=== PATIENT | male | born 1990 | race Caucasian/White ===

== ENCOUNTER 2017-12-16 02:02 | Emergency (ER) | payer OTHER ==
[~2017-12-16] VITALS: Ht 180.3 cm; Wt 71.9 kg
[2017-12-16 06:37] VITALS: BP 121/60
== END 2017-12-16 06:44 | disposition home or self-care (01) ==
LOC: EME 02:02
DX: T40.1X1A Poisoning by heroin, accidental (unintentional), initial encounter (principal); S00.83XA Contusion of other part of head, initial encounter; M25.571 Pain in right ankle and joints of right foot; V48.0XXA Car driver injured in noncollision transport accident in nontraffic accident, initial encounter; F17.200 Nicotine dependence, unspecified, uncomplicated
CPT/HCPCS: 70450; 72125; 73610; 99281; 99284

== ENCOUNTER 2018-03-09 13:05 | Inpatient (IN) | payer OTHER ==
[~2018-03-09] VITALS: Ht 180.3 cm; Wt 74.0 kg
[2018-03-09 13:17] LABS: BASOPHIL (%) 0.3 % (0-1); EOSINOPHIL (%) 0.6 % (0-5); EOSINOPHIL COUNT 0.1 K/uL (0-0.3); HEMATOCRIT 39.7 % (38.0-50.0); HEMOGLOBIN 13.8 G/DL (12.5-16.6); IMMATURE GRANULOCYTE (%) 0.3 % (0.0-0.7); LYMPHOCYTE (%) 12.4 % (15-42); LYMPHOCYTE COUNT 1.3 K/uL (1.0-2.8); MCH 31.8 PG (29.0-34.0); MCHC 34.8 G/DL (30.0-36.0); MCV 91.5 FL (86-99); MONOCYTE (%) 7.1 % (3-12); MONOCYTE COUNT 0.8 K/uL (0-0.8); NEUTROPHIL (%) 79.3 % (45-76); NEUTROPHIL COUNT 8.6 K/uL (1.8-6.4); PLATELET COUNT 166 K/uL (156-360); RBC DIS.WIDTH-CV 12.3 % (11.8-14.6); RBC DIS.WIDTH-SD 41.5 % (39-53); RED BLOOD COUNT 4.34 M/uL (4.00-5.50); WHITE BLOOD COUNT 10.8 K/uL (4.1-10.2)
[2018-03-09 13:26] LABS: AMYLASE 57 IU/L (1-118); CHLORIDE 100 mEq/L (99-109); SODIUM 139 mEq/L (136-147)
[2018-03-09 13:28] LABS: GLUCOSE 120 mg/dL (70-99)
[2018-03-09 13:31] LABS: SERUM ETHYL ALCOHOL < 10 mg/dL
[2018-03-09 13:32] LABS: CREATININE 0.9 mg/dL (0.6-1.3); GFR ESTIMATE (CALCULATED) > 59 mL/min/ (58.99-99999)
[2018-03-09 13:33] LABS: UREA NITROGEN (BUN) 11 mg/dL (9-23)
[2018-03-09 13:35] LABS: LIPASE 9 U/L (1.0-51.0)
[2018-03-09] MEDS ORDERED: NEURONTIN800 MG PO (16:17)
[2018-03-09] MEDS ORDERED: DESYREL100 MG PO (16:22)
[2018-03-09] MEDS ORDERED: FLEXERIL10 MG PO (16:22)
[2018-03-09] MEDS ORDERED: METHADONE10 MG PO (16:23)
[2018-03-09] MEDS ORDERED: ADVIL,NUPRIN,M200 MG PO (16:23)
[2018-03-09 21:38] VITALS: BP 149/86
[2018-03-09 21:45] VITALS: BP 149/86
[2018-03-09 23:00] VITALS: BP 154/69
[2018-03-09 23:35] LABS: APPEARANCE CLEAR ((CLEAR)); BILIRUBIN NEGATIVE; BLOOD NEGATIVE; COLOR YELLOW ((YELLOW)); GLUCOSE (STRIP) NEGATIVE; KETONES 5; LEUKOCYTES NEGATIVE; NITRITE NEGATIVE; PROTEIN (STRIP) NEGATIVE; SPECIFIC GRAVITY 1.017 (1.000-1.030); UCUL ADDED? NO; UROBILINOGEN 0.2 MG/DL (0.2-1.0)
[2018-03-09 23:57] LABS: COCAINE NEGATIVE (150 ng/mL); PHENCYCLIDINE NEGATIVE (25 ng/mL); THC CANNABINOIDS PRESUMPTIVE POSITIVE (50 ng/mL)
[2018-03-09 23:58] LABS: AMPHETAMINE NEGATIVE (500 ng/mL); BARBITURATES NEGATIVE (200 ng/mL); BENZODIAZEPINES PRESUMPTIVE POSITIVE (150 ng/mL); BUPRENORPHINE NEGATIVE (10 ng/mL); METHADONE PRESUMPTIVE POSITIVE (200 ng/mL); METHAMPHETAMINE NEGATIVE (500 ng/mL); OPIATES (MORPHINE) PRESUMPTIVE POSITIVE (100 ng/mL); OXYCODONE NEGATIVE (100 ng/mL); PROPOXYPHENE NEGATIVE (300 ng/mL); TRICYCLIC ANTIDEPRESSANTS NEGATIVE (300 ng/mL)
[2018-03-10 00:28] LABS: BENZODIAZEPINES, URINE SCREEN POSITIVE (200 ng/mL)
[2018-03-10 04:06] VITALS: BP 144/69
[2018-03-10 07:50] VITALS: BP 133/68
[2018-03-10 11:58] VITALS: BP 154/86
[2018-03-10] MEDS ORDERED: AUGMENTIN875 MG PO (14:22)
[2018-03-10] MEDS ORDERED: OXAYDO5 MG PO (14:22)
[2018-03-10 16:02] VITALS: BP 140/77
== END 2018-03-10 19:28 | disposition home or self-care (01) | DRG 464 ==
LOC: TRA 13:05 → 3EAST 18:17 → EDOF 18:17 → ENRESERV 18:18 → 3EAST 21:27
PROVIDERS: Emergency Medicine; Surgery
PROC: 0JDN0ZZ Extraction of Right Lower Leg Subcutaneous Tissue and Fascia, Open Approach (ICD-10-PCS; principal; 2018-03-09)
PROC: 0JBN0ZZ Excision of Right Lower Leg Subcutaneous Tissue and Fascia, Open Approach (ICD-10-PCS; principal; 2018-03-09)
PROC: 0LQQ0ZZ Repair Right Knee Tendon, Open Approach (ICD-10-PCS; principal; 2018-03-09)
PROC: 0HQFXZZ Repair Right Hand Skin, External Approach (ICD-10-PCS; 2018-03-09)
PROC: 0CQ1XZZ Repair Lower Lip, External Approach (ICD-10-PCS; 2018-03-09)
PROC: 3E1U38Z Irrigation of Joints using Irrigating Substance, Percutaneous Approach (ICD-10-PCS; 2018-03-10)
DX: S76.121A Laceration of right quadriceps muscle, fascia and tendon, initial encounter (principal); S81.011A Laceration without foreign body, right knee, initial encounter; S83.511A Sprain of anterior cruciate ligament of right knee, initial encounter; S01.511A Laceration without foreign body of lip, initial encounter; S61.216A Laceration without foreign body of right little finger without damage to nail, initial encounter; F11.20 Opioid dependence, uncomplicated; G89.29 Other chronic pain; V86.55XA Driver of 3- or 4- wheeled all-terrain vehicle (ATV) injured in nontraffic accident, initial encounter; Z87.81 Personal history of (healed) traumatic fracture; S93.401D Sprain of unspecified ligament of right ankle, subsequent encounter; Z79.899 Other long term (current) drug therapy
CPT/HCPCS: 70450; 70486; 71260; 72125; 72129; 72132; 73564; 73610; 73630; 73721; 74177; 80048; 81003; 82150; 82948; 83690; 84999; 85025; 86850; 86900; 86901; 99281; 99285; G0480; J0131; J0295; J0330; J0690; J1100; J1170; J1885; J2250; J2405; J2550; J2710; J3010; J7030; J7050; J7643; S0020